=== PATIENT | male | born 1970 | race Caucasian/White ===

== ENCOUNTER 2019-09-08 23:37 | Inpatient (IN) ==
[2019-09-09] MEDS ORDERED: LORazepam 2 MG/4 ML VIAL ONE ×2 (00:08→09:07)
[2019-09-09] MEDS ORDERED: DEXTROSE 5% IV STA (00:08)
[2019-09-09] MEDS ORDERED: LEVETIRACETAM IV STA (00:08)
[2019-09-09] MEDS ORDERED: SODIUM CHLORIDE 0.9% 1000ML 1,000 ML IV SCH (00:15)
[2019-09-09 00:28] LABS: Basophils # (auto) 0.04 K/uL (0-0.2); Basophils % (auto) 0.4 %; Eosinophils # (auto) 0.13 K/uL (0-0.5); Eosinophils % (auto) 1.2 %; Hematocrit (blood only) 43.3 % (42-52); Hemoglobin 14.5 g/dL (14.0-18.0); Immature Granulocytes # (auto) 0.02 K/uL (0.00-0.02); Immature Granulocytes % (auto) 0.2 %; Lymphocytes # (auto) 3.12 K/uL (1.2-3.4); Lymphocytes % (auto) 29.4 %; Mean Corpuscular Hemoglobin 31.8 pg (25-34); Mean Corpuscular Hgb Conc 33.5 g/dL (32-36); Mean Platelet Volume 9.7 fL (7.4-10.4); Monocytes # (auto) 1.16 K/uL (0.11-0.59); Monocytes % (auto) 10.9 %; Neutrophils # (auto) 6.16 K/uL (1.4-6.5); Neutrophils % (auto) 57.9 %; Platelet Count 172 K/uL (130-400); RDW Coefficient of Variation 12.6 % (11.5-14.5); RDW Standard Deviation 43.6 fL (36.4-46.3); Red Blood Count 4.56 M/uL (4.7-6.1); White Blood Count 10.63 K/uL (4.8-10.8)
[2019-09-09 00:41] LABS: Appearance Urine Clear (Clear); Bilirubin Urine Negative (Negative); Blood Urine Negative (Negative); Color Urine Yellow; Glucose Urine UA Negative (Negative); Ketones Urine Negative (Negative); Leukocyte Esterase Urine Negative (Negative); Nitrite Urine Negative (Negative); Protein Urine Negative (Negative); Specific Gravity Urine 1.021 (1.000-1.030); Urobilinogen Urine Negative (Negative)
[2019-09-09 00:50] LABS: Alanine Aminotransferase 111 U/L (12-78); Aspartate Aminotransferase 77 U/L (15-37); BUN Creatinine Ratio 3.6 (10-20); Bilirubin,Total 0.3 mg/dl (0.2-1); Blood Urea Nitrogen 5 mg/dl (7-18); Calcium 8.8 mg/dl (8.5-10.1); Carbon Dioxide 15 mmol/L (21-32); Chloride 100 mmol/L (98-107); Creatinine Clr Calc Pharmacy 78.5 ml/min; Est GFR (African American) 74.4; Est GFR (Non-African American) 64.2; Glucose 127 mg/dl (70-99); Magnesium 2.2 mg/dl (1.8-2.4); Potassium 3.3 mmol/L (3.5-5.1); Sodium 137 mmol/L (136-145); Total Protein 7.5 gm/dl (6.4-8.2)
[2019-09-09 00:53] LABS: Alkaline Phosphatase 69 U/L (45-117); Bilirubin Direct 0.1 mg/dl (0-0.2); Creatine Kinase 132 U/L (39-308); Troponin I < 0.015 ng/ml (0-0.045)
[2019-09-09 01:14] LABS: Amphetamines+Metham, Urine Neg (Neg); Barbiturates, Urine Neg (Neg); Benzodiazepine, Urine Neg (Neg); Cocaine, Urine Neg (Neg); MDMA (Ecstacy), Urine Neg (Neg); Methadone, Urine Neg (Neg); Opiate, Urine Neg (Neg); Phencyclidine, Urine Neg (Neg)
--- NOTE | 2019-09-09 02:07 | History & Physical Report ---
Date of Service September 09, 2019 Assessment & Plan (1) New onset seizure: This is a 49-year-old male with past medical history of drug abuse, per report sober since 2004, who presents to the ER via EMS after new onset seizure- like activity at home. Per report this patient was witnessed to have 30 seconds of generalized tonic-clonic movements at home by his mother. He was brought to the ED and was witnessed by nursing and ED physician to have 2 more episodes of 40 seconds of generalized seizure-like activity. HPI is limited due to sedation. No family or friends at the bedside. ED evaluation remarkable for: Normotensive, afebrile, oxygenating well on room air. CBC, urinalysis bland. UDS negative, negative blood alcohol. CMP remarkable for sodium 137, potassium 3.3, elevated anion gap 22, BUN/creatinine 5/1.29. Glucose 127. AST/ALT 77/111. Normal alkaline phosphatase, negative troponin, normal albumin. Chest x-ray and head CT nonacute. Assessment: -New onset generalized seizure-like activity x3 associated with mild transaminitis, elevated anion gap. -Given 1500 mg Keppra and 1 mg IV Ativan in the ED with good effect. -Etiology: Acute symptomatic seizure versus unprovoked seizure--patient does not appear to have hypoglycemia or hyponatremia or stroke or traumatic brain injury. Meningitis has not been ruled out, and anoxic encephalopathy remains on the differential. Epilepsy diagnosed in adults is more likely to be due to an acquired vascular, degenerative, or neoplastic etiology. -Urine drug screen is negative, negative blood alcohol. -Per report patient is sober from drug abuse since 2004. -Patient is on gabapentin scheduled for unknown reasons however he does not seem to have a history of pre-existing brain lesion or progressive nervous system disorder. Plan: -Admit to telemetry -Consult neurology -Will order brain MRI with and without contrast as well as EEG to be done in the morning. Further brain imaging will defer to neurology. -Unsure if lumbar puncture would be useful as infectious etiology does not seem apparent. -IV fluid hydration at maintenance while n.p.o. -Seizure precautions FEN/GI: N.p.o. except meds and sips. D5 normal saline with 20 of K at 100 mL's per hour DVT ppx: SCDs. We will hold off on chemical anticoagulation until further brain imaging rules out any abnormalities. CODE STATUS: Full code however was not able to confirm this with the patient as he was sedated from the IV Keppra and Ativan. DISPO: Telemetry, pending neurologist evaluation (2) Mild opioid abuse on maintenance therapy: Continue home buprenorphine naloxone twice daily, gabapentin 800 mg 3 times daily. History of Present Illness Chief Complaint: New onset seizure-like activity at home, also in the ED Primary Care Provider: NO PCP This is a 49-year-old male with past medical history of drug abuse, per report sober since 2004, who presents to the ER via EMS after new onset seizure-like activity at home. Per report this patient was witnessed to have 30 seconds of generalized tonic-clonic movements at home by his mother. He was brought to the ED and was witnessed by nursing and ED physician to have 2 more episodes of 40 seconds of generalized seizure-like activity. HPI is limited due to sedation. No family or friends at the bedside. ED evaluation remarkable for: Normotensive, afebrile, oxygenating well on room air. CBC, urinalysis bland. UDS negative, negative blood alcohol. CMP remarkable for sodium 137, potassium 3.3, elevated anion gap 22, BUN/creatinine 5/1.29. Glucose 127. AST/ALT 77/111. Normal alkaline phosphatase, negative troponin, normal albumin. Chest x-ray and head CT nonacute. Allergies Allergy/AdvReac Type Severity Reaction Status Date / Time No Known Allergies Allergy Mild Unverified 09/09/19 00:08 Home Medications Home Medications Medication Instructions Recorded Confirmed Type buprenorphine-naloxone 1 tab SUBLINGUAL BID 09/09/19 09/09/19 History gabapentin 800 mg PO TID 09/09/19 09/09/19 History Past Med/Surg History Medical History Mild opioid abuse on maintenance therapy (Chronic) Social History Preferred Language: Spanish Communication Ability: Effective Insurance Clerk Required: No Beliefs That Will Affect Care: None Current Living Situation: Family Current Living Situation Comment: Lives with mother Other Information That Helps Us Care for You: Yes () Feels Safe at Home: Yes Safety Concerns: Feels Safe At This Time Smoking Status: Current every day smoker Tobacco Type: cigarettes ; Do You Dip or Chew Tobacco: No ; Second Hand Exposure: Yes ; Tobacco Cessation Education Requested by Patient: No Hx Alcohol Use: Yes Alcohol type: beer Hx Substance Use: No Review of Systems Review of Systems: Unobtainable due to reduced consciousness Physical Exam Physical Exam: Vitals noted and within normal limits GENERAL: Somnolent, nontoxic-appearing, in no distress. HENT: Normocephalic, atraumatic. Nasal cannula in place. Mucus membranes appear moist. EYES: Normal conjunctiva. Sclera non-icteric. EOMI. NECK: Supple. Full range of motion. No JVD. RESPIRATORY: Clear to auscultation. Normal work of breathing. CARDIAC: Regular rate, normal rhythm. Extremities warm and well perfused, 2+ radial pulses bilaterally; 2+ posterior tibialis pulses bilaterally. ABDOMEN: Soft, non-distended. No rebound or guarding. No masses. Bowel sounds are normal. LOWER EXTREMITIES: Inspection of calves reveal equal size bilaterally. They are non-tender. No edema. No discoloration. NEURO: Sedated. SKIN: Rash not present. No jaundice noted. Significant lesions not present. PSYCH: Sedated. No family or friends at the bedside to provide further history. Exam as done by Selin Cary MD, Sales Consultant Residential Manager. Results & Data Vital Signs (Past 12 Hours) Vital Signs Temp Pulse Pulse Resp BP BP Pulse Ox 09/09/19 00:27 122 H 20 126/73 97 09/08/19 23:42 36.7 C 93 H 20 136/78 97 Laboratory Results 09/09/19 09/09/19 09/09/19 Range/Units 00:25 00:25 00:14 WBC (4.8-10.8) K/uL RBC (4.7-6.1) M/uL Hgb (14.0-18.0) g/dL Hct (42-52) % MCV (80-100) fL MCH (25-34) pg MCHC (32-36) g/dL RDW Std Deviation (36.4-46.3) fL RDW Coeff of Angela (11.5-14.5) % Plt Count (130-400) K/uL MPV (7.4-10.4) fL Immature Gran % (Auto) % Neut % (Auto) % Lymph % (Auto) % [place] % (Auto) % Eos % (Auto) % Baso % (Auto) % Immature Gran # (Auto) (0.00-0.02) K/uL Neut # (Auto) (1.4-6.5) K/uL Lymph # (Auto) (1.2-3.4) K/uL [place] # (Auto) (0.11-0.59) K/uL Eos # (Auto) (0-0.5) K/uL Baso # (Auto) (0-0.2) K/uL Sodium (136-145) mmol/L Potassium (3.5-5.1) mmol/L Chloride (98-107) mmol/L Carbon Dioxide (21-32) mmol/L Anion Gap (3-11) BUN (7-18) mg/dl Creatinine (0.6-1.4) mg/dl Est Cr Clr Drug Dosing ml/min Est GFR ( Amer) Est GFR (Non-Af Amer) BUN/Creatinine Ratio (10-20) Glucose (70-99) mg/dl Calcium (8.5-10.1) mg/dl Magnesium (1.8-2.4) mg/dl Total Bilirubin (0.2-1) mg/dl Direct Bilirubin (0-0.2) mg/dl AST (15-37) U/L ALT (12-78) U/L Alkaline Phosphatase (45-117) U/L Total Creatine Kinase (39-308) U/L Troponin I (0-0.045) ng/ml Total Protein (6.4-8.2) gm/dl Albumin (3.4-5.0) gm/dl Urine Color Yellow Urine Appearance Clear (Clear) Urine pH 5.0 (4.5-7.5) Ur Specific [place] 1.021 (1.000-1.030) Urine Protein Negative (Negative) Urine Glucose (UA) Negative (Negative) Urine Ketones Negative (Negative) Urine Blood Negative (Negative) Urine Nitrite Negative (Negative) Urine Bilirubin Negative (Negative) Urine Urobilinogen Negative (Negative) Ur Leukocyte Esterase Negative (Negative) Urine Opiates Screen Neg (Neg) Ur Methadone, Qual Neg (Neg) Urine Barbiturates Neg (Neg) Ur Phencyclidine (PCP) Neg (Neg) U Amphetamin/Meth Scrn Neg (Neg) MDMA (Ecstasy) Screen Neg (Neg) U Benzodiazepines Scrn Neg (Neg) Ur Cocaine Metabolite Neg (Neg) U Marijuana (THC) Screen Neg (Neg) Ethyl Alcohol mg/dL < 3.0 (0-3) mg/dl 09/09/19 09/09/19 Range/Units 00:14 00:14 WBC 10.63 (4.8-10.8) K/uL RBC 4.56 L (4.7-6.1) M/uL Hgb 14.5 (14.0-18.0) g/dL Hct 43.3 (42-52) % MCV 95.0 (80-100) fL MCH 31.8 (25-34) pg MCHC 33.5 (32-36) g/dL RDW Std Deviation 43.6 (36.4-46.3) fL RDW Coeff of Angela 12.6 (11.5-14.5) % Plt Count 172 (130-400) K/uL MPV 9.7 (7.4-10.4) fL Immature Gran % (Auto) 0.2 % Neut % (Auto) 57.9 % Lymph % (Auto) 29.4 % [place] % (Auto) 10.9 % Eos % (Auto) 1.2 % Baso % (Auto) 0.4 % Immature Gran # (Auto) 0.02 (0.00-0.02) K/uL Neut # (Auto) 6.16 (1.4-6.5) K/uL Lymph # (Auto) 3.12 (1.2-3.4) K/uL [place] # (Auto) 1.16 H (0.11-0.59) K/uL Eos # (Auto) 0.13 (0-0.5) K/uL Baso # (Auto) 0.04 (0-0.2) K/uL Sodium 137 (136-145) mmol/L Potassium 3.3 L (3.5-5.1) mmol/L Chloride 100 (98-107) mmol/L Carbon Dioxide 15 L (21-32) mmol/L Anion Gap 22.0 H (3-11) BUN 5 L (7-18) mg/dl Creatinine 1.29 (0.6-1.4) mg/dl Est Cr Clr Drug Dosing 78.5 ml/min Est GFR ( Amer) 74.4 Est GFR (Non-Af Amer) 64.2 BUN/Creatinine Ratio 3.6 L (10-20) Glucose 127 H (70-99) mg/dl Calcium 8.8 (8.5-10.1) mg/dl Magnesium 2.2 (1.8-2.4) mg/dl Total Bilirubin 0.3 (0.2-1) mg/dl Direct Bilirubin 0.1 (0-0.2) mg/dl AST 77 H (15-37) U/L ALT 111 H (12-78) U/L Alkaline Phosphatase 69 (45-117) U/L Total Creatine Kinase 132 (39-308) U/L Troponin I < 0.015 (0-0.045) ng/ml Total Protein 7.5 (6.4-8.2) gm/dl Albumin 4.0 (3.4-5.0) gm/dl Urine Color Urine Appearance (Clear) Urine pH (4.5-7.5) Ur Specific [place] (1.000-1.030) Urine Protein (Negative) Urine Glucose (UA) (Negative) Urine Ketones (Negative) Urine Blood (Negative) Urine Nitrite (Negative) Urine Bilirubin (Negative) Urine Urobilinogen (Negative) Ur Leukocyte Esterase (Negative) Urine Opiates Screen (Neg) Ur Methadone, Qual (Neg) Urine Barbiturates (Neg) Ur Phencyclidine (PCP) (Neg) U Amphetamin/Meth Scrn (Neg) MDMA (Ecstasy) Screen (Neg) U Benzodiazepines Scrn (Neg) Ur Cocaine Metabolite (Neg) U Marijuana (THC) Screen (Neg) Ethyl Alcohol mg/dL (0-3) mg/dl Supervising Physician Co-Signing Physician Notes Patient was seen and examined by me personally. I reviewed the chart, the orders and discussed the case in detail with Dr. Selin Cary MD . I read this H&P and agree with its contents to entirety. PG Care Time/CCT Total # of Minutes Spent Total Time Spent with Patient: Total time spent is greater than 50% in coordination of care (as documented) at patient's floor/unit and/or counseling patient: Resident Activity Tracking Resident Involvement: Resident Care Provided Care Provided: Adult [facility] Medicine
[2019-09-09] MEDS ORDERED: ONDANSETRON INJ 2 MG/ML 2 ML VIAL IV PRN (03:00)
[2019-09-09] MEDS ORDERED: ALUMINUM/MAGNESIUM SUSP 30 ML UDC PO PRN (03:00)
[2019-09-09] MEDS ORDERED: MAGNESIUM HYDROXIDE SUSP 30 ML UDC PO PRN (03:00)
[2019-09-09] MEDS ORDERED: ACETAMINOPHEN 325 MG TAB PO PRN (03:00)
[2019-09-09] MEDS ORDERED: POLYETHYLENE (MIRALAX) 17 GM PACK PO PRN (03:00)
--- NOTE | 2019-09-09 03:53 | Emergency Department Note ---
Entered by Stephanie Wilson acting as a scribe for Tulio Underwood MD ED Provider Note Name: Lopez Whatley Age: 49 M Arrives Via: EMS Informant: Patient CC: Seizure HPI: 49 year old male arrives for evaluation of seizure-like activity that occurred prior to arrival. The patient's nurse reports that the patient's mother observed the patient on the floor with rapid muscle spasm. The patient was unresponsive for 30 seconds and the patient's mother called EMS. The patient reports that the he was watching a football game when the event happened. The patient states that he does not recall the seizure or EMS arrival. The patient recalls seeing EMS standing over him. The patient denies having a headache or any discomfort. The patient denies any family history of seizures. The patient denies any recent falls, injuries or visual hallucinations during the past couple of days. The patient denies any history of alcoholism or alcohol use. The patient states that he smokes on pack a day. The patient reports having using IV drugs until 2004. 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 ROS: See above HPI for pertinent positives & negatives. A total of 10 systems reviewed and were otherwise negative. Past Medical History: No reported medical history Past Surgical History: No reported surgical history Family History: No significant family history Social History: Current smoker Home Medications: Buprenorphine-naloxone, Gabapentin Allergies No known allergies Physical: Vitals: BP 136/78, P 93, R 20, O2 97% on RA , Temp 36.7 C Exam: GENERAL: Patient is well appearing and in no acute distress. EYES: No scleral icterus, unremarkable pupils. ENT: Mucous membranes moist, no nasal congestion. NECK: No masses appreciated, no meningismus, trachea is midline. RESPIRATORY: No dyspnea. Equal bilaterally. Mild wheezing of all lung ozuna, no rhonchi. CARDIOVASCULAR: Regular rate and rhythm. No murmurs, rubs, gallops appreciated. GASTROINTESTINAL: Abdomen soft, non-tender, no peritonitis. Bowel sounds positive. No masses appreciated. BACK: No midline tenderness, no CVA tenderness EXTREMITIES: Normal motion all extremities, no cyanosis, no edema. NEUROLOGIC: Alert and oriented, no acute motor or sensory deficits, no focal weakness, cranial nerves grossly intact. SKIN: No rash, no jaundice, no diaphoresis. ED Course: Prior Medical Record, Triage/Nursing Notes, Medications, Allergies reviewed by Me Vital Signs: reviewed and remarkable for mild HTN Labs: Reviewed and remarkable for mild CO2 drop Interventions: saline lock, ativan 2mg IV, Keppra 1.6gm IV Imaging: X ray results are stated below per my interpretation: Chest: 1 view: No infiltrate, no effusion, normal cardiac border. [facility] Radiologist interpretation reviewed by me: CT Head no acute findings. Blood pressure: Normal. No Referral necessary Course: 2347: Past medical records reviewed. The patient was evaluated in room B4. A complete history and physical exam was performed. 0009: The patient had a 1 minutes seizure that started with teeth clenching which rapidly progressed to full body spasm and clenching. The patient's head was turn to the right and eye was up to the right. The patient's teeth were clenched to the point of cracking. The patient's arms were flexed and his legs were extended. He is currently postictal and Ativan order. 0017: I reassessed the patient who is still obtunded. The patient is no longer seizing. 0048: I went to reassess the patient and was informed that he was at CAT scan. 0113: I reviewed the patient's case with Dr. Flannery, [facility] Hospitalist. He will evaluate the patient for further management. 0138: I reassessed the patient who is still sleeping. Consults: 0113: I reviewed the patient's case with Dr. Flannery, [facility] Hospitalist. He will evaluate the patient for further management. Disposition: Hospitalization Prescriptions: none. Differentials: infection, hypoglycemia, electrolyte abnormalities, cardiac sources, intracerebral event, trauma, toxicologic, neurologic, as well as others were entertained. Medical Decision Making: Pleasant 49 yr old male with history of opioid abuse on suboxone arrives after seizure at home which he has never had before. No meningismus, headache, fevers, neck discomfort. Patient initially evaluated and without complaint other than not remembering what happened prior to arrival. Shortly after arrival patient with another seizure, given 2mg IV Ativan and started Keppra load. Post seizure quite post ictal for prolonged amount of time. Given this will need to come in for further monitoring. CT head OK, EKG unremarkable, Labs with mild CO2 drop consistent with recent seizure. Given fluids. No evidence stroke nor indication for emergent CTA/MRI at this time. As patient was awake, alert, and oriented at time of arrival able to review history/symptoms, there is no reason to suspect this was drug induced, trauma related, meningitis, etc. He denies accidentally nor purposeful I do not see emergent indication for LP at this time. Impression: New Onset Seizure Critical Care Time: I have personally spent greater than 30 minutes of critical care time in the direct management of this patient. 2 seizures with prolonged post ictal period requiring ativan and IV keppra load. This was a life/limb threatening event. This includes time spent evaluating patient, direct bedside care, chart review, placing orders, interpretation of diagnostic studies, discussion with consultants, as well as other required patient management activities. This 30 minutes is in excess of all separately billable procedures. The scribe's documentation has been prepared under my direction and personally reviewed by me in its entirety. I confirm that the note above accurately reflects all work, treatment, procedures, and medical decision making performed by me. Tulio Underwood MD Impression & Plan New onset seizure Past Med/Surg History Medical History Mild opioid abuse on maintenance therapy (Chronic) Social History Preferred Language: [place]ian Communication Ability: Effective Golf Tournament Consultant Required: No Beliefs That Will Affect Care: None Current Living Situation: Family Current Living Situation Comment: Lives with mother Other Information That Helps Us Care for You: Yes () Feels Safe at Home: Yes Safety Concerns: Feels Safe At This Time Smoking Status: Current every day smoker Tobacco Type: cigarettes ; Do You Dip or Chew Tobacco: No ; Second Hand Exposure: Yes ; Tobacco Cessation Education Requested by Patient: No Hx Alcohol Use: Yes Alcohol type: beer Hx Substance Use: No Results & Data Vital Signs Vital Signs - 24 hr 09/08/19 23:42 09/09/19 00:27 Temperature 36.7 C Temperature Source Oral Sepsis Recent Fever Within 48 Hours No Sepsis Action Taken by Nursing No Action Required Pulse Rate 93 H Pulse Rate [Right Finger] 122 H Pulse Rhythm Regular Pulse Rhythm [Right Finger] Regular Pulse Strength Normal Pulse Strength [Right Finger] Normal Respiratory Rate 20 20 Respiratory Effort / Characteristics Non-Labored Spontaneous Non-Labored Accessory Muscle Use Respiratory Depth Normal Normal Respiratory Pattern Regular Regular Blood Pressure 136/78 Blood Pressure [Left Arm] 126/73 Blood Pressure Mean 97 Blood Pressure Mean [Left Arm] 90 Blood Pressure Position Sitting Pulse Oximetry 97 97 Oxygen Delivery Method Room Air Room Air Laboratory Data Result diagrams: 09/09/19 00:14 09/09/19 00:14 Lab Results 09/09/19 09/09/19 09/09/19 Range/Units 00:14 00:14 00:14 WBC 10.63 (4.8-10.8) K/uL RBC 4.56 L (4.7-6.1) M/uL Hgb 14.5 (14.0-18.0) g/dL Hct 43.3 (42-52) % MCV 95.0 (80-100) fL MCH 31.8 (25-34) pg MCHC 33.5 (32-36) g/dL RDW Std Deviation 43.6 (36.4-46.3) fL RDW Coeff of Angela 12.6 (11.5-14.5) % Plt Count 172 (130-400) K/uL MPV 9.7 (7.4-10.4) fL Immature Gran % (Auto) 0.2 % Neut % (Auto) 57.9 % Lymph % (Auto) 29.4 % [place] % (Auto) 10.9 % Eos % (Auto) 1.2 % Baso % (Auto) 0.4 % Immature Gran # (Auto) 0.02 (0.00-0.02) K/uL Neut # (Auto) 6.16 (1.4-6.5) K/uL Lymph # (Auto) 3.12 (1.2-3.4) K/uL [place] # (Auto) 1.16 H (0.11-0.59) K/uL Eos # (Auto) 0.13 (0-0.5) K/uL Baso # (Auto) 0.04 (0-0.2) K/uL Sodium 137 (136-145) mmol/L Potassium 3.3 L (3.5-5.1) mmol/L Chloride 100 (98-107) mmol/L Carbon Dioxide 15 L (21-32) mmol/L Anion Gap 22.0 H (3-11) BUN 5 L (7-18) mg/dl Creatinine 1.29 (0.6-1.4) mg/dl Est Cr Clr Drug Dosing 78.5 ml/min Est GFR ( Amer) 74.4 Est GFR (Non-Af Amer) 64.2 BUN/Creatinine Ratio 3.6 L (10-20) Glucose 127 H (70-99) mg/dl Calcium 8.8 (8.5-10.1) mg/dl Magnesium 2.2 (1.8-2.4) mg/dl Total Bilirubin 0.3 (0.2-1) mg/dl Direct Bilirubin 0.1 (0-0.2) mg/dl AST 77 H (15-37) U/L ALT 111 H (12-78) U/L Alkaline Phosphatase 69 (45-117) U/L Total Creatine Kinase 132 (39-308) U/L Troponin I < 0.015 (0-0.045) ng/ml Total Protein 7.5 (6.4-8.2) gm/dl Albumin 4.0 (3.4-5.0) gm/dl Urine Color Urine Appearance (Clear) Urine pH (4.5-7.5) Ur Specific [place] (1.000-1.030) Urine Protein (Negative) Urine Glucose (UA) (Negative) Urine Ketones (Negative) Urine Blood (Negative) Urine Nitrite (Negative) Urine Bilirubin (Negative) Urine Urobilinogen (Negative) Ur Leukocyte Esterase (Negative) Urine Opiates Screen (Neg) Ur Methadone, Qual (Neg) Urine Barbiturates (Neg) Ur Phencyclidine (PCP) (Neg) U Amphetamin/Meth Scrn (Neg) MDMA (Ecstasy) Screen (Neg) U Benzodiazepines Scrn (Neg) Ur Cocaine Metabolite (Neg) U Marijuana (THC) Screen (Neg) Ethyl Alcohol mg/dL < 3.0 (0-3) mg/dl 09/09/19 09/09/19 Range/Units 00:25 00:25 WBC (4.8-10.8) K/uL RBC (4.7-6.1) M/uL Hgb (14.0-18.0) g/dL Hct (42-52) % MCV (80-100) fL MCH (25-34) pg MCHC (32-36) g/dL RDW Std Deviation (36.4-46.3) fL RDW Coeff of Angela (11.5-14.5) % Plt Count (130-400) K/uL MPV (7.4-10.4) fL Immature Gran % (Auto) % Neut % (Auto) % Lymph % (Auto) % [place] % (Auto) % Eos % (Auto) % Baso % (Auto) % Immature Gran # (Auto) (0.00-0.02) K/uL Neut # (Auto) (1.4-6.5) K/uL Lymph # (Auto) (1.2-3.4) K/uL [place] # (Auto) (0.11-0.59) K/uL Eos # (Auto) (0-0.5) K/uL Baso # (Auto) (0-0.2) K/uL Sodium (136-145) mmol/L Potassium (3.5-5.1) mmol/L Chloride (98-107) mmol/L Carbon Dioxide (21-32) mmol/L Anion Gap (3-11) BUN (7-18) mg/dl Creatinine (0.6-1.4) mg/dl Est Cr Clr Drug Dosing ml/min Est GFR ( Amer) Est GFR (Non-Af Amer) BUN/Creatinine Ratio (10-20) Glucose (70-99) mg/dl Calcium (8.5-10.1) mg/dl Magnesium (1.8-2.4) mg/dl Total Bilirubin (0.2-1) mg/dl Direct Bilirubin (0-0.2) mg/dl AST (15-37) U/L ALT (12-78) U/L Alkaline Phosphatase (45-117) U/L Total Creatine Kinase (39-308) U/L Troponin I (0-0.045) ng/ml Total Protein (6.4-8.2) gm/dl Albumin (3.4-5.0) gm/dl Urine Color Yellow Urine Appearance Clear (Clear) Urine pH 5.0 (4.5-7.5) Ur Specific [place] 1.021 (1.000-1.030) Urine Protein Negative (Negative) Urine Glucose (UA) Negative (Negative) Urine Ketones Negative (Negative) Urine Blood Negative (Negative) Urine Nitrite Negative (Negative) Urine Bilirubin Negative (Negative) Urine Urobilinogen Negative (Negative) Ur Leukocyte Esterase Negative (Negative) Urine Opiates Screen Neg (Neg) Ur Methadone, Qual Neg (Neg) Urine Barbiturates Neg (Neg) Ur Phencyclidine (PCP) Neg (Neg) U Amphetamin/Meth Scrn Neg (Neg) MDMA (Ecstasy) Screen Neg (Neg) U Benzodiazepines Scrn Neg (Neg) Ur Cocaine Metabolite Neg (Neg) U Marijuana (THC) Screen Neg (Neg) Ethyl Alcohol mg/dL (0-3) mg/dl Administered Medications Discontinued Medications Levetiracetam 1,600 mg/ (Dextrose) 266 mls @ 999 mls/hr IV NOW STA Stop: 09/09/19 00:24 Last Infusion: 09/09/19 00:40 Dose: 0 mls/hr Documented by: [id number] Admin: 09/09/19 00:25 Dose: 999 mls/hr Documented by: [id number] Sodium Chloride (Nss 1000ml) 1,000 mls @ 125 mls/hr IV .Q8H BRISEIDA Stop: 10/09/19 00:14 Last Infusion: 09/09/19 03:00 Dose: 0 mls/hr Documented by: [id number] Admin: 09/09/19 00:27 Dose: 125 mls/hr Documented by: [id number] Lorazepam (Ativan) Confirm Administered Dose 2 mg .ROUTE .STK-MED ONE Stop: 09/09/19 00:09 Last Admin: 09/09/19 00:12 Dose: 2 mg Documented by: [id number] Discharge Plan Visit Data *Final* Discharge Date/Time: 09/09/19 02:29 Chief Complaint: Seizure Stated Complaint: seizure ED Provider: Tulio Underwood Discharge Problem: New onset seizure Patient Disposition: Admitted As Inpatient Discharge Instructions Interventions: ED Discharge Assessment Last Done: 09/09/19 02:29 The gulshanibjany's documentation has been prepared under my direction and personally reviewed by me in its entirety. I confirm that the note above accurately reflects all work, treatment, procedures, and medical decision making performed by me.
[2019-09-09] MEDS: D5NSS + 20MEQ KCL 20 MEQ/1,000 ML BAG IV SCH ×2 (04:09→14:45)
--- NOTE | 2019-09-09 06:45 | XRay Report ---
XR chest 1V portable CLINICAL HISTORY: syncope/seizure COMPARISON STUDY: Chest radiograph July 09, 2011. FINDINGS: Lung volumes are normal. Linear left lung densities are unchanged from prior exam and sugge sts scarring. There may be left pleural calcification. There is no pneumothorax or pleural effusion. Cardiac size is normal. Mediastinal contours are normal. There is no evidence for pulmonary edema. Ca lcified granuloma within the left midlung is noted. IMPRESSION: No acute cardiopulmonary findings. No significant change in appearance of the chest. Electronically signed by: Darius Hoffman M.D. 09/09/2019 6:44 AM
--- NOTE | 2019-09-09 06:49 | CT Scan Report ---
CT head/brain wo con CLINICAL HISTORY: 49 years-old Male with Seizure, new onset. Acute seizure TECHNIQUE: Multiple axial CT images of the head were obtained without contrast. A dose lowering tech nique was utilized adhering to the principles of ALARA. CT DOSE: 537.48 mGy.cm COMPARISON: Head CT 07/09/2011. FINDINGS: No acute intracranial hemorrhage, midline shift, intracranial mass, hydrocephalus, territorial ischem ia or abnormal extra-axial collection. Cerebral vascular calcifications are noted. The calvarium is intact. Mastoid air cells are clear. Partially imaged mucosal thickening of the eth moid air cells. Soft tissues and imaged orbits appear unremarkable. IMPRESSION: No acute intracranial abnormality. The above report was generated using voice recognition software. It may contain grammatical, syntax o r spelling errors. Electronically signed by: Dayne Peoples M.D. 09/09/2019 6:48 AM
[2019-09-09] MEDS ORDERED: GADOBUTROL 65ML VIAL IV PRN (10:00)
--- NOTE | 2019-09-09 10:13 | Magnetic Resonance Report ---
MR brain seizure wo/w con HISTORY: 49 years-old Male new onset seizures acute new onset seizure with headache COMPARISON: Head CT 09/09/2019 TECHNIQUE: Multiplanar multisequence MRI of the brain was obtained both with and without the use of 8 .0 mL Gadavist utilizing seizure protocol. FINDINGS: Large [id number] goggles assembler localizer images demonstrate no gross extracranial abnormality. Motion degr aded exam. There is no restricted diffusion to suggest acute or subacute infarction. Midline structur es including the corpus callosum, brainstem, optic chiasm, pituitary and pineal glands appear unremar kable on the sagittal T1 series. Degenerative changes noted about the imaged cervical spine. No acute intracranial hemorrhage, midline shift, abnormal extra-axial collection, hydrocephalus or intracranial mass. There are a few minimal punctate foci of T2/FLAIR prolongation within the white matter, likely of no clinical significance. N o acute seizure focus identified. Mild involutional changes of the brain parenchyma. Bilateral mesial temporal lobes are unremarkable without evidence of mesial temporal sclerosis. No evidence of cortic al dysplasia or ariza matter heterotopia. There is no abnormal intra-axial or extra-axial enhancement. Major flow voids at the level of the skull base appear to be patent. Trace left mastoid effusion. Mil d mucosal thickening of the ethmoid air cells and nasal turbinates. The orbits, skull and soft tissue s are unremarkable. IMPRESSION: 1. Motion degraded exam. 2. No acute intracranial abnormality or abnormal enhancement. The above report was generated using voice recognition software. It may contain grammatical, syntax o r spelling errors. Electronically signed by: Dayne Peoples M.D. 09/09/2019 10:11 AM
--- NOTE | 2019-09-09 14:44 | History & Physical Bridge Note ---
Date of Service September 09, 2019 History & Physical Bridge Note Patient was seen and examined today. He was having some twitching when I first came in in the arms and legs, but it resolved when he woke up. He was AAOx3 on my interview. Plan for MRI brain and EEG today. Neurology consulted. Will monitor for further seizures.
[2019-09-09] MEDS: GABAPENTIN 800 MG TAB PO SCH ×2 (15:44→20:26)
[2019-09-09] MEDS: BUPRENORPHINE/NALOXONE 8/2 MG TAB SL SCH ×2 (15:44→20:26)
--- NOTE | 2019-09-09 16:43 | Neurology Consultation ---
Date of Consultation September 09, 2019 Assessment & Plan (1) Seizure: Lopez Whatley is a 49-year-old man with past medical history of heroin abuse on maintenance opiate therapy and headaches who presents with new onset seizure. # New onset seizure: Given semiology reported in the ED, patient likely had a focal left-sided seizure but generalized (most likely localized to either the left frontal lobe or temporal lobe). He is currently already on gabapentin 800 mg 3 times daily which would cover for focal seizures, however he reports he has not missed any doses of the gabapentin, hence we will add a second AED. At this point he has completed an inpatient seizure work-up with EEG pending (please see addendum for final read of EEG). He is stable for discharge from a neurological standpoint once he is more alert. Please start Keppra 1000 mg BID If able to obtain a comprehensive drug screen from the serum to rule out any drugs of abuse not on the UDS given his prior history of both heroin and cocaine abuse that would be helpful to ensure that this was not a provoked seizure #Mild transaminitis: Unlikely to be a trigger for his seizures. Given his history of prior heroin and IV drug abuse, would send a hepatitis screen to rule out hep C as the cause. Thank you for this interesting consult. Please feel free to call or text if you have any other questions. We will see the patient in follow-up in neurology clinic in the next 2 to 4 weeks following discharge. Present on Admission?: Yes History of Present Illness Attending Physician: Lopez Whatley is a 49-year-old man with past medical history of heroin abuse on maintenance opiate therapy and headaches who presents with new onset seizure. He is unable to give much of a history but reports that yesterday afternoon he was watching [place] game at his mom's house when he started to get a headache. Per his daughter, he reported not feeling well that afternoon. While watching the [employer] game, he reportedly had a generalized tonic-clonic seizure witnessed by his mother. There was associated tongue biting, no clear loss of bowel or bladder during the event. He remembers waking up in the ambulance with the hand picker before arriving in the hospital. While in the emergency department, he was noted to have another seizure which was described as teeth clenching and "full body spasm and clenching ". The patient's head was turned to the right and his eyes were also looking to the right. His arms were reportedly flexed and his legs were extended. He received Ativan and a Keppra load was noted to have a prolonged postictal period. Labs in the ED were notable for hemoglobin of 14.5, platelets 172, sodium 137, potassium 3.3, anion gap 22, creatinine 1.29, glucose 127, calcium 8.8, magnesium 2.2, negative troponin, and mildly elevated AST at 77 and ALT at 111. No infection was seen on urinalysis. Toxicology was also negative for common drugs of abuse. CT head showed no hemorrhage or hypodensity. MRI of the brain per my read (with seizure protocol) did not show any sclerosis of the hippocampi, no new stroke, no mass lesion, no clear subarachnoid blood, and only mild T2 hyperintensities most likely small vessel ischemic disease. EEG has been performed; final read pending. On examination this afternoon, patient was initially drowsy but easily awakens with stimulation. He was unable to give me much of a history except as detailed above. He does report that he has been having headaches and did have a headache yesterday but denied any recent fevers, chills, rashes, neck stiffness, coughs or colds, or any changes in his medications. He denies any recent substance abuse and reports that he takes the gabapentin for chronic pain. Seizure risk factors: Denies: , IEP or intellectual disability as a child, history of meningitis or encephalitis, recurrent TBI with loss of consciousness, family history of epilepsy, history of febrile seizures, history of stroke or brain malformation, congenital epilepsy syndrome Unknown history of: complications, NICU stay, Positive for: history of drug or alcohol abuse (heroin, cocaine) Allergies Allergy/AdvReac Type Severity Reaction Status Date / Time No Known Allergies Allergy Mild Unverified 09/09/19 00:08 Home Medications Home Medications Medication Instructions Recorded Confirmed Type buprenorphine-naloxone 1 tab SUBLINGUAL BID 09/09/19 09/09/19 History gabapentin 800 mg PO TID 09/09/19 09/09/19 History Patient History Medical History Mild opioid abuse on maintenance therapy (Chronic) Social History Preferred Language: German Communication Ability: Effective Wood Tool Maker Required: No Beliefs That Will Affect Care: None Current Living Situation: Family Current Living Situation Comment: Lives with mother Other Information That Helps Us Care for You: Yes () Feels Safe at Home: Yes Safety Concerns: Feels Safe At This Time Smoking Status: Current every day smoker Tobacco Type: cigarettes ; Do You Dip or Chew Tobacco: No ; Second Hand Exposure: Yes ; Tobacco Cessation Education Requested by Patient: No Hx Alcohol Use: Yes Alcohol type: beer Hx Substance Use: No Review of Systems Review of Systems: All systems reviewed & are unremarkable except as noted in HPI & below Physical Exam Physical Exam: General Exam: GEN: NAD, sitting in bed. HEENT: No conjunctival injection, no rhinorrhea, moist mucus membranes. CV: RRR on monitor, no peripheral edema PULM: Nonlabored respirations on room air. Neuro Exam: MS: Drowsy, initially requiring frequent stimulation but became arousable. Oriented to person, place, and year, thought it was July. Speech fluent and appropriate without dysarthria or paraphasic errors. Language intact including naming, comprehension, repetition. Cognition and memory grossly intact. Attention intact. No neglect. CN: Visual ozuna full. No extinction to double simultaneous stimuli. Unable to visualize fundi. PERRLA OU. EOMI without nystagmus. Facial sensation intact to LT. Facial muscles full and symmetric. Hearing intact to conversation. Uvula midline with symmetric palatal elevation. SCMs and shoulder shrug normal. Tongue midline. MOTOR: Normal bulk and tone. No pronator drift. BUE strength 5/5 at deltoids, biceps, triceps, wrist flexors and extensors, and finger flexors bilaterally. BLE strength 5/5 at iliopsoas, hamstrings, quadriceps, tibialis anterior, and gastrocnemius bilaterally. REFLEXES: 2+ at biceps, triceps, brachioradialis, patella and trace Achilles bilaterally. Flexor plantar responses bilaterally. SENSORY: Intact to LT, vibration and temperature throughout though diminished to vibration up to his ankles. No extinction to double simultaneous stimuli. COORDINATION: No dysmetria or ataxia on [id number] and srtk-[id number] bilaterally. Normal Cheryl bilaterally. GAIT: Deferred Results & Data Vital Signs (Past 12 Hours) Vital Signs Temp Pulse Resp BP Pulse Ox 09/09/19 15:45 36.7 C 63 19 121/71 98 09/09/19 11:00 36.3 C L 59 L 16 120/69 97 09/09/19 06:56 36.7 C 60 18 97 Laboratory Results 09/09/19 09/09/19 09/09/19 Range/Units 00:25 00:25 00:14 WBC (4.8-10.8) K/uL RBC (4.7-6.1) M/uL Hgb (14.0-18.0) g/dL Hct (42-52) % MCV (80-100) fL MCH (25-34) pg MCHC (32-36) g/dL RDW Std Deviation (36.4-46.3) fL RDW Coeff of Angela (11.5-14.5) % Plt Count (130-400) K/uL MPV (7.4-10.4) fL Immature Gran % (Auto) % Neut % (Auto) % Lymph % (Auto) % [place] % (Auto) % Eos % (Auto) % Baso % (Auto) % Immature Gran # (Auto) (0.00-0.02) K/uL Neut # (Auto) (1.4-6.5) K/uL Lymph # (Auto) (1.2-3.4) K/uL [place] # (Auto) (0.11-0.59) K/uL Eos # (Auto) (0-0.5) K/uL Baso # (Auto) (0-0.2) K/uL Sodium (136-145) mmol/L Potassium (3.5-5.1) mmol/L Chloride (98-107) mmol/L Carbon Dioxide (21-32) mmol/L Anion Gap (3-11) BUN (7-18) mg/dl Creatinine (0.6-1.4) mg/dl Est Cr Clr Drug Dosing ml/min Est GFR ( Amer) Est GFR (Non-Af Amer) BUN/Creatinine Ratio (10-20) Glucose (70-99) mg/dl Calcium (8.5-10.1) mg/dl Magnesium (1.8-2.4) mg/dl Total Bilirubin (0.2-1) mg/dl Direct Bilirubin (0-0.2) mg/dl AST (15-37) U/L ALT (12-78) U/L Alkaline Phosphatase (45-117) U/L Total Creatine Kinase (39-308) U/L Troponin I (0-0.045) ng/ml Total Protein (6.4-8.2) gm/dl Albumin (3.4-5.0) gm/dl Urine Color Yellow Urine Appearance Clear (Clear) Urine pH 5.0 (4.5-7.5) Ur Specific [place] 1.021 (1.000-1.030) Urine Protein Negative (Negative) Urine Glucose (UA) Negative (Negative) Urine Ketones Negative (Negative) Urine Blood Negative (Negative) Urine Nitrite Negative (Negative) Urine Bilirubin Negative (Negative) Urine Urobilinogen Negative (Negative) Ur Leukocyte Esterase Negative (Negative) Urine Opiates Screen Neg (Neg) Ur Methadone, Qual Neg (Neg) Urine Barbiturates Neg (Neg) Ur Phencyclidine (PCP) Neg (Neg) U Amphetamin/Meth Scrn Neg (Neg) MDMA (Ecstasy) Screen Neg (Neg) U Benzodiazepines Scrn Neg (Neg) Ur Cocaine Metabolite Neg (Neg) U Marijuana (THC) Screen Neg (Neg) Ethyl Alcohol mg/dL < 3.0 (0-3) mg/dl 09/09/19 09/09/19 Range/Units 00:14 00:14 WBC 10.63 (4.8-10.8) K/uL RBC 4.56 L (4.7-6.1) M/uL Hgb 14.5 (14.0-18.0) g/dL Hct 43.3 (42-52) % MCV 95.0 (80-100) fL MCH 31.8 (25-34) pg MCHC 33.5 (32-36) g/dL RDW Std Deviation 43.6 (36.4-46.3) fL RDW Coeff of Angela 12.6 (11.5-14.5) % Plt Count 172 (130-400) K/uL MPV 9.7 (7.4-10.4) fL Immature Gran % (Auto) 0.2 % Neut % (Auto) 57.9 % Lymph % (Auto) 29.4 % [place] % (Auto) 10.9 % Eos % (Auto) 1.2 % Baso % (Auto) 0.4 % Immature Gran # (Auto) 0.02 (0.00-0.02) K/uL Neut # (Auto) 6.16 (1.4-6.5) K/uL Lymph # (Auto) 3.12 (1.2-3.4) K/uL [place] # (Auto) 1.16 H (0.11-0.59) K/uL Eos # (Auto) 0.13 (0-0.5) K/uL Baso # (Auto) 0.04 (0-0.2) K/uL Sodium 137 (136-145) mmol/L Potassium 3.3 L (3.5-5.1) mmol/L Chloride 100 (98-107) mmol/L Carbon Dioxide 15 L (21-32) mmol/L Anion Gap 22.0 H (3-11) BUN 5 L (7-18) mg/dl Creatinine 1.29 (0.6-1.4) mg/dl Est Cr Clr Drug Dosing 78.5 ml/min Est GFR ( Amer) 74.4 Est GFR (Non-Af Amer) 64.2 BUN/Creatinine Ratio 3.6 L (10-20) Glucose 127 H (70-99) mg/dl Calcium 8.8 (8.5-10.1) mg/dl Magnesium 2.2 (1.8-2.4) mg/dl Total Bilirubin 0.3 (0.2-1) mg/dl Direct Bilirubin 0.1 (0-0.2) mg/dl AST 77 H (15-37) U/L ALT 111 H (12-78) U/L Alkaline Phosphatase 69 (45-117) U/L Total Creatine Kinase 132 (39-308) U/L Troponin I < 0.015 (0-0.045) ng/ml Total Protein 7.5 (6.4-8.2) gm/dl Albumin 4.0 (3.4-5.0) gm/dl Urine Color Urine Appearance (Clear) Urine pH (4.5-7.5) Ur Specific [place] (1.000-1.030) Urine Protein (Negative) Urine Glucose (UA) (Negative) Urine Ketones (Negative) Urine Blood (Negative) Urine Nitrite (Negative) Urine Bilirubin (Negative) Urine Urobilinogen (Negative) Ur Leukocyte Esterase (Negative) Urine Opiates Screen (Neg) Ur Methadone, Qual (Neg) Urine Barbiturates (Neg) Ur Phencyclidine (PCP) (Neg) U Amphetamin/Meth Scrn (Neg) MDMA (Ecstasy) Screen (Neg) U Benzodiazepines Scrn (Neg) Ur Cocaine Metabolite (Neg) U Marijuana (THC) Screen (Neg) Ethyl Alcohol mg/dL (0-3) mg/dl PG Care Time/CCT Total # of Minutes Spent Total Time Spent with Patient: Total time spent is greater than 50% in coordination of care (as documented) at patient's floor/unit and/or counseling patient:
[2019-09-09] MEDS: levETIRAcetam 500 MG TAB PO SCH (20:26)
[2019-09-10] MEDS: D5NSS + 20MEQ KCL 20 MEQ/1,000 ML BAG IV SCH ×2 (02:03→11:53)
[2019-09-10] MEDS: levETIRAcetam 500 MG TAB PO SCH (08:01)
[2019-09-10] MEDS: GABAPENTIN 800 MG TAB PO SCH (08:01)
[2019-09-10] MEDS: BUPRENORPHINE/NALOXONE 8/2 MG TAB SL SCH (08:01)
[2019-09-10 09:35] LABS: Albumin Level 3.1 gm/dl (3.4-5.0); BUN Creatinine Ratio 3.9 (10-20); Bilirubin,Total 0.6 mg/dl (0.2-1); Calcium 8.3 mg/dl (8.5-10.1); Est GFR (African American) 124.7; Est GFR (Non-African American) 107.6; Potassium 4.3 mmol/L (3.5-5.1); Total Protein 6.1 gm/dl (6.4-8.2)
--- NOTE | 2019-09-10 17:58 | Discharge Summary ---
Date of Service September 10, 2019 Admission HPI Per Admitting Provider This is a 49-year-old male with past medical history of drug abuse, per report sober since 2004, who presents to the ER via EMS after new onset seizure-like activity at home. Per report this patient was witnessed to have 30 seconds of generalized tonic-clonic movements at home by his mother. He was brought to the ED and was witnessed by nursing and ED physician to have 2 more episodes of 40 seconds of generalized seizure-like activity. HPI is limited due to sedation. No family or friends at the bedside. ED evaluation remarkable for: Normotensive, afebrile, oxygenating well on room air. CBC, urinalysis bland. UDS negative, negative blood alcohol. CMP remarkable for sodium 137, potassium 3.3, elevated anion gap 22, BUN/creatinine 5/1.29. Glucose 127. AST/ALT 77/111. Normal alkaline phosphatase, negative troponin, normal albumin. Chest x-ray and head CT nonacute. Principal Diagnosis New onset seizure Discharge Exam Constitutional WD/WN, vitals as above Eyes EOM intact bilaterally; no conjunctival abnormality ENMT external ear and nose normal, oropharynx normal Neck trachea midline, no thyromegaly normal visual inspection Respiratory normal respiratory effort, lungs clear to auscultation no respiratory distress Cardiovascular RRR, no murmur, no edema Gastrointestinal (Abdomen) Inspection/Auscultation: abdomen normal to inspection; abdomen not distended Musculoskeletal no cyanosis or clubbing, extremities motor strength 5/5 Skin no rashes, warm and dry Neurologic moves all extremities and awake Psychiatric Orientation: alert, oriented to person and cooperative Discharge Data Allergies Allergy/AdvReac Type Severity Reaction Status Date / Time No Known Allergies Allergy Mild Unverified 09/09/19 00:08 Consultations 09/09/19 01:35 ED Decision to Admit Stat 09/09/19 03:00 Consult Neurology Routine Ordered Studies 09/09/19 00:02 CT head/brain wo con Urgent 09/09/19 03:00 MR brain seizure wo/w con Urgent Hospital Course (1) New onset seizure: Seen by neurology with EEG done, but still not read. Started on Keppra and will follow up in 2-4 weeks. There was some concern by his family that he may be abusing his gabapentin, but he denied this to me when asked. He was very somnolent on 09/09, but was at his baseline by 09/10. Discussed discharge with him and his family. Follow up appointment scheduled and pointed out to the patient. DMV was notified via fax regarding his seizure. (2) Mild opioid abuse on maintenance therapy: Continued home meds. (3) Hepatitis C: Probably HCV diagnosis. He had mildly elevated LFTs (77/111) on admission, then down to 50/80 on 09/10. Prelim HCV Ab is positive with confirmation and RNA pending on discharge. Informed of this in person and on discharge packet. Total Time Total Time Spent Total Time Spent (In Minutes): 35 Discharge Plan Discharge Items Patient Disposition: Home - Self-Care Reason For Visit: NEW ONSET SEIZURES Discharge Diagnosis: New onset seizure Activity: Resume your previous activity Driving/Machine Use: Please follow up with neurology and your PCP before driving. Non-emergency contact: Primary Care Provider and Neurologist Call non-emergency contact if: your symptoms worsen Follow-up/Referrals: Nava Pena MD [Physician] - 09/24/19 8:15 am (Please, follow up at [facility] Neurology Office with Dr. Nava Pena on MondaySeptember 24 at 8:15 am. *The office is located at [address] [place] [address] in [place]. If you need to change this appointment, call the office at [phone].) Barbara Evangelista DO [Primary Care Provider] - 09/16/19 8:05 am (Please, follow up at [facility] in [place] with Dr. Barbara Evangelista on MondaySeptember 16 at 8:05 am. *The office is located at [address] [place] [address] in [place]. If you need to change/cancel this appointment, call the office at [phone].) Diet: Regular Addtl Attending Provider Instructions: Mr. Whatley, You were admitted to the hospital with seizures that were witnessed by your family and the ER doctors. We started a medication that will help prevent further seizures. Please follow up with your PCP and Dr. Pena (the neurologist) who saw you in the hospital. Of note, your liver enzymes were slightly high in the hospital. We did a hepatitis C test, and it appears you may have hepatitis C. This is a chronic (long-term) infection of the liver that can cause damage over a long time (years). However, it is curable. Please follow up with your PCP to get the final results of this testing. It is being sent an outside lab for confirmation. If you do have hepatitis C, your PCP can help you get referred to a specialist who can talk with you about options to treat and cure your hepatitis. Pending Studies at Discharge: Yes (Hepatitis C confirmation testing and RNA level) Stand-Alone Forms: My [facility] Medications and DC Order Prescriptions: New levetiracetam [Keppra] 500 mg Tablet 1,000 mg PO BID Qty: 180 RF: 1 Continued gabapentin 800 mg Tablet 800 mg PO TID RF: 0 buprenorphine-naloxone 8-2 mg Tablet, Sublingual 1 tab SUBLINGUAL BID RF: 0 Discharge Orders: Discharge Order (Routine); Ordered 09/10/19 Ordered By: Hari Lyon/Other Patient Handouts: Levetiracetam Oral tablet Admission Data Admit Date/Time: 09/09/19 02:06 Attending Provider: Hari Lay Admit Provider: Donnell Cary Primary Care Provider: Barbara Evangelista Other Providers: Brandon Spring III ; Hari aLy Other Interventions: Discharge Summary Assessment (RN) Last Done: 09/10/19 12:59 DC Date/Time DO NOT enter until pt leaves facility: 09/10/19 14:04
== END 2019-09-10 14:04 | disposition home or self-care (01) | DRG 101 ==
LOC: ED 23:37 → 2S 09-09 02:06 → SUATTDRO 09-09 02:06 → 2S 09-09 02:29